=== PATIENT | male | born 1970 | race African-American/Black ===

== ENCOUNTER 2016-10-09 14:50 | Emergency (ER) | payer OTHER ==
[~2016-10-09] VITALS: Ht 170.2 cm; Wt 63.5 kg
[2016-10-09 14:52] VITALS: BP 135/90
[2016-10-09] MEDS ORDERED: IV NORMAL SALINE 1000ML BAG 1,000 ML IV ONE (15:30)
[2016-10-09 16:20] LABS: BASO # 0.1 x10^3/uL (0.0-0.2); BASO % 1 % (0-3); EOS % 2 % (0-3); HEMATOCRIT 44.1 % (39.0-53.0); HEMOGLOBIN 14.8 g/dL (13.0-17.5); LYMPH # 2.2 x10^3/uL (1.0-4.8); LYMPH % 31 % (24-48); MEAN CORPUSCULAR HEMOGLOBIN 30 pg (25-35); MEAN CORPUSCULAR HGB CONC 34 g/dL (31-37); MEAN CORPUSCULAR VOLUME 89 fL (79-100); MONO % 4 % (0-9); NEUT % 63 % (31-73); PLATELET COUNT 240 x10^3/uL (140-400); RED BLOOD COUNT 4.96 x10^6/uL (4.30-5.70); WHITE BLOOD COUNT 7.1 x10^3/uL (4.0-11.0)
[2016-10-09 16:36] LABS: CALCIUM 9.2 mg/dL (8.5-10.1); GFR 98.2; POTASSIUM 4.4 mmol/L (3.5-5.1)
[2016-10-09 16:42] LABS: ALBUMIN 4.4 g/dL (3.4-5.0); DIRECT BILIRUBIN 0.1 mg/dL (0.0-0.2); TOTAL BILIRUBIN 0.5 mg/dL (0.2-1.0); TOTAL PROTEIN 8.4 g/dL (6.4-8.2)
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
--- NOTE | 2016-10-09 17:22 | EKG ---
[facility] [address] [place] [address] Test Date: 2016-10-09 Test Time: 16:11:12 Pat Name: ANN VERDIN Department: Room: Gender: M [employer]: : 1970 Requested By: FAMILIA BATISTA Order Number: [id number] Reading MD: Measurements Intervals [place] Rate: 111 P: 41 [place]: 132 QRS: -42 QRSD: 78 T: 31 QT: 306 QTc: 419 Interpretive Statements SINUS TACHYCARDIA ABNORMAL LEFT AXIS DEVIATION LEFT ANTERIOR FASCICULAR BLOCK QRS(T) CONTOUR ABNORMALITY CONSIDER ANTEROSEPTAL MYOCARDIAL DAMAGE ABNORMAL ECG RI6.01 No previous ECG available for comparison
== END 2016-10-09 17:45 | disposition home or self-care (01) ==
LOC: ER 14:50
DX: R00.0 Tachycardia, unspecified (principal); R42 Dizziness and giddiness; E86.0 Dehydration; F12.10 Cannabis abuse, uncomplicated
CPT/HCPCS: 36415; 80048; 80076; 83690; 84484; 85027; 93005; 96360; 99285; J7030

== ENCOUNTER → 2016-10-09 | Outpatient (CLI) | payer OTHER ==
[2016-05-07 14:08] VITALS: BP 125/78
[~2016-10-09] MED LIST: CEFT2FRO2 IV; DOCU-27 PO; GABA-586 PO; HYDR-971 PO; Hydrocodone/Acetaminophen PO; NORT25CA PO; ONDA4TAB10 SL; OXYC-323 PO; PRED-220 PO; QUET25TA5 PO
--- NOTE | 2016-10-09 14:21 | RAD ---
Right upper quadrant abdominal ultrasound History: Right upper quadrant pain, nausea. Comparison: None. Technique: Transabdominal ultrasound images are obtained. Findings: Visualized pancreas is unremarkable. Liver is normal in echogenicity. No focal hepatic masses are identified. Right hepatic lobe measures 15.2 cm in length. Gallbladder demonstrate small gallstones. No gallbladder wall thickening or pericholecystic fluid is identified. Common bile duct measures normally at 5 mm in diameter. The right kidney measures 9.9 cm in length and is without evidence of obstruction or stone. Visualized portions of the IVC have normal caliber. Impression: 1. Cholelithiasis without evidence of cholecystitis. 2. Otherwise, unremarkable right upper quadrant ultrasound.
== END | disposition home or self-care (01) ==
LOC: US 13:47
PROVIDERS: ATTEND Family Medicine
DX: K80.20 Calculus of gallbladder without cholecystitis without obstruction (principal)
CPT/HCPCS: 76705

== ENCOUNTER → 2016-11-11 | Outpatient (CLI) | payer OTHER ==
[2016-10-28 15:00] VITALS: BP 110/74
[~2016-11-11] MED LIST changes: +MELO-150 PO; +NORT50CA PO; +OXYC1TAB7 PO
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
== END | disposition home or self-care (01) ==
LOC: KCIC MRI 12:27
PROVIDERS: ATTEND Psychiatry & Neurology Neurology with Special Qualifications in Child Neurology
DX: H57.8 Other specified disorders of eye and adnexa (principal)
CPT/HCPCS: 70551

== ENCOUNTER 2017-07-31 08:08 | Emergency (ER) | payer OTHER ==
[2017-07-31 08:42] LABS: ADD MAN DIFF? NO
[2017-07-31 08:45] LABS: BASO % 1 % (0-3); EOS # 0.1 x10^3/uL (0.0-0.7); EOS % 2 % (0-3); HEMATOCRIT 38.8 % (39.0-53.0); HEMOGLOBIN 13.6 g/dL (13.0-17.5); LYMPH # 0.9 x10^3/uL (1.0-4.8); LYMPH % 27 % (24-48); MEAN CORPUSCULAR HEMOGLOBIN 32 pg (25-35); MEAN CORPUSCULAR HGB CONC 35 g/dL (31-37); MEAN CORPUSCULAR VOLUME 91 fL (79-100); MONO # 0.2 x10^3/uL (0.0-1.1); MONO % 6 % (0-9); NEUT # 2.1 x10^3uL (1.8-7.7); NEUT % 65 % (31-73); PLATELET COUNT 176 x10^3/uL (140-400); RED BLOOD COUNT 4.28 x10^6/uL (4.30-5.70); RED CELL DISTRIBUTION WIDTH 14.5 % (11.5-14.5); WHITE BLOOD COUNT 3.2 x10^3/uL (4.0-11.0)
[2017-07-31] MEDS: IV NORMAL SALINE 1000ML BAG 1,000 ML IV (08:49)
[2017-07-31] MEDS: ONDANSETRON PF 4 MG/2 ML VIAL. IV (08:49)
[2017-07-31] MEDS: KETOROLAC 30 MG/ML INJ. IV (08:50)
[2017-07-31] MEDS: FAMOTIDINE 20 MG/2 ML VIAL IVP (08:52)
[2017-07-31 09:15] LABS: ANION GAP 12 (6-14); BLOOD UREA NITROGEN 7 mg/dL (8-26); BUN/CREATININE RATIO 12 (6-20); CALCIUM 9.5 mg/dL (8.5-10.1); CARBON DIOXIDE 28 mmol/L (21-32); CHLORIDE 100 mmol/L (98-107); CREATININE 0.6 mg/dL (0.7-1.3); GFR 177.1; GLUCOSE 129 mg/dL (70-99); POTASSIUM 4.4 mmol/L (3.5-5.1); SODIUM 140 mmol/L (136-145)
[2017-07-31 09:20] LABS: ALBUMIN 3.9 g/dL (3.4-5.0); ALK PHOS 128 U/L (46-116); ALT (SGPT) 294 U/L (16-63); AST (SGOT) 334 U/L (15-37); LIPASE 94 U/L (73-393); TOTAL BILIRUBIN 0.9 mg/dL (0.2-1.0)
[2017-07-31] MEDS: IOHEXOL 300 MG/ML 100ML VIAL. IV (09:22)
[2017-07-31 09:32] LABS: ETHANOL < 10 mg/dL (0-10)
== END 2017-07-31 11:20 | disposition home or self-care (01) ==
LOC: ER 08:08
DX: R10.84 Generalized abdominal pain (principal); R11.2 Nausea with vomiting, unspecified; F10.239 Alcohol dependence with withdrawal, unspecified; F12.10 Cannabis abuse, uncomplicated
CPT/HCPCS: 36415; 74177; 80053; 83690; 85025; 96361; 96374; 96375; 99285-25; G0480; J1885; J2060; J2405; J7030; Q9967; S0028

== ENCOUNTER → 2017-10-08 | Outpatient (CLI) | payer OTHER | END | disposition home or self-care (01) | LOC: RAD 13:03 | DX: S06.9X9D Unspecified intracranial injury with loss of consciousness of unspecified duration, subsequent encounter (principal); M50.321 Other cervical disc degeneration at C4-C5 level; M25.78 Osteophyte, vertebrae; G89.29 Other chronic pain; Z90.49 Acquired absence of other specified parts of digestive tract; X58.XXXD Exposure to other specified factors, subsequent encounter | CPT/HCPCS: 72050; 72072; 72110 ==

== ENCOUNTER 2017-12-01 10:42 | Emergency (ER) | payer OTHER | END 2017-12-01 12:43 | disposition home or self-care (01) | LOC: ER 10:42 | DX: R51 Headache (principal); R21 Rash and other nonspecific skin eruption; F12.10 Cannabis abuse, uncomplicated; F10.10 Alcohol abuse, uncomplicated | CPT/HCPCS: 70450; 99284-25 ==

== ENCOUNTER 2017-12-16 21:02 | Emergency (ER) | payer OTHER ==
[2017-12-16 21:21] LABS: ADD MAN DIFF? NO
[2017-12-16 21:26] LABS: BASO # 0.1 x10^3/uL (0.0-0.2); BASO % 1 % (0-3); EOS # 0.2 x10^3/uL (0.0-0.7); EOS % 4 % (0-3); HEMATOCRIT 36.9 % (39.0-53.0); LYMPH % 48 % (24-48); MEAN CORPUSCULAR HEMOGLOBIN 32 pg (25-35); MEAN CORPUSCULAR HGB CONC 35 g/dL (31-37); MEAN CORPUSCULAR VOLUME 91 fL (79-100); MONO # 0.3 x10^3/uL (0.0-1.1); MONO % 7 % (0-9); NEUT # 1.6 x10^3uL (1.8-7.7); NEUT % 39 % (31-73); PLATELET COUNT 246 x10^3/uL (140-400); RED BLOOD COUNT 4.05 x10^6/uL (4.30-5.70); RED CELL DISTRIBUTION WIDTH 13.9 % (11.5-14.5)
[2017-12-16 21:33] LABS: ANION GAP 11 (6-14); BLOOD UREA NITROGEN 9 mg/dL (8-26); CALCIUM 8.3 mg/dL (8.5-10.1); CARBON DIOXIDE 26 mmol/L (21-32); CHLORIDE 108 mmol/L (98-107); CREATININE 1.1 mg/dL (0.7-1.3); GFR 87.6; GLUCOSE 105 mg/dL (70-99); POTASSIUM 3.9 mmol/L (3.5-5.1); SODIUM 145 mmol/L (136-145)
[2017-12-16 21:34] LABS: INR 1.2 (0.8-1.1); PARTIAL THROMBOPLASTIN TIME 29 SEC (24-38); PROTHROMBIN TIME PATIENT 14.9 SEC (11.7-14.0)
[2017-12-16 21:46] LABS: ETHANOL 428 mg/dL (0-10)
[2017-12-16] MEDS: DIPHTH,PERTUSS(ACELL),TET TOX 0.5 ML DISP.SYRIN. VAX IM (22:00)
[2017-12-16] MEDS ORDERED: LIDOCAINE 1%/EPI 1:100,000 30 ML VIAL. IJ (22:00)
== END 2017-12-17 04:20 | disposition home or self-care (01) ==
LOC: ER 12-17 04:20
DX: S16.1XXA Strain of muscle, fascia and tendon at neck level, initial encounter (principal); S00.03XA Contusion of scalp, initial encounter; S50.811A Abrasion of right forearm, initial encounter; F10.129 Alcohol abuse with intoxication, unspecified; Y08.89XA Assault by other specified means, initial encounter; Y93.89 Activity, other specified; Y99.8 Other external cause status; Y92.89 Other specified places as the place of occurrence of the external cause
CPT/HCPCS: 36415; 70450; 72125; 80048; 85025; 85610; 85730; 90471; 90715; 99285-25; G0480

== ENCOUNTER 2018-04-12 13:59 | Emergency (ER) | payer OTHER ==
[~2018-04-12] VITALS: Ht 170.2 cm; Wt 63.5 kg
[~2018-04-12 13:59] MED LIST changes: +ACET500T68 PO; +DOCU-109 PO; -DOCU-27 PO; -MELO-150 PO; +MELO15TA23 PO
[2018-04-12 14:15] VITALS: BP 114/76
[2018-04-12] MEDS ORDERED: methylPREDNISolone SOD SUCC PF 125 MG/2 ML VIAL. IM ONE (14:30)
[2018-04-12] MEDS ORDERED: diphenhydrAMINE HCL 25 MG CAPSULE PO ONE (14:30)
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
[2018-04-12] MEDS ORDERED: DIPH25CA58 PO (14:58)
[2018-04-12] MEDS ORDERED: PRED20TA PO (14:58)
== END 2018-04-12 15:28 | disposition home or self-care (01) ==
LOC: ER 13:59
DX: L25.9 Unspecified contact dermatitis, unspecified cause (principal); F10.20 Alcohol dependence, uncomplicated
CPT/HCPCS: 96372; 99283; J2930; Q0163